=== PATIENT | female | born 1985 | race African-American/Black ===

== ENCOUNTER 2020-12-17 16:44 | Emergency (ER) | payer OTHER ==
[~2020-12-17] VITALS: Ht 149.9 cm; Wt 127.0 kg
[2020-12-17] MEDS ORDERED: FAMOTIDINE 20MG/2ML VIAL IV STA (17:59)
[2020-12-17] MEDS ORDERED: KETOROLAC 30MG/ML VIAL IV STA (17:59)
[2020-12-17] MEDS ORDERED: ONDANSETRON HCL 4MG/2ML INJ IV STA (17:59)
[2020-12-17] MEDS ORDERED: SODIUM CHLORIDE 0.9% 1,000 ML IV ONE (18:00)
[2020-12-17 18:08] LABS: CLARITY URINE CLEAR (CLEAR); COLOR URINE YELLOW (YELLOW); KETONES URINE NEGATIVE (NEGATIVE); LEUKOCYTE ESTERASE URINE NEGATIVE (NEGATIVE); NITRITE URINE NEGATIVE (NEGATIVE); OCCULT BLOOD URINE NEGATIVE (NEGATIVE); PROTEIN URINE NEGATIVE (NEGATIVE); SPECIFIC GRAVITY URINE 1.018 (1.005-1.030)
[2020-12-17 18:21] LABS: BASOPHILS % 0.6 % (0.0-2.0); CHLORIDE 107 mEq/L (98-107); EOSINOPHILS % 1.2 % (0.0-5.0); HEMATOCRIT. 36.1 % (36.0-48.0); HEMOGLOBIN. 11.1 g/dL (12.0-16.0); LYMPHOCYTES % 30.5 % (20.0-50.0); MEAN CORPUSCULAR HEMOGLOBIN 20.9 pg (28.0-32.0); MEAN CORPUSCULAR VOLUME 68.2 fL (81.0-99.0); MEAN PLATELET VOLUME 9.1 fl (7.4-10.4); MONOCYTES % 11.5 % (2.0-8.0); NEUTROPHILS % 56.2 % (40.0-76.0); PLATELET 279 x1000/uL (130-400); RED CELL DISTRIBUTION WIDTH 20.5 % (11.6-14.6)
[2020-12-17 18:23] LABS: HCG SCREEN NEGATIVE
[2020-12-17] MEDS ORDERED: DEXTROSE 50% WATER 50ML SYRINGE IV NR (18:45)
[2020-12-17 19:37] LABS: PLATELET ESTIMATE NORMAL
[2020-12-17] MEDS ORDERED: FAMO-135 MT (20:24)
[2020-12-17] MEDS ORDERED: MAGNESIUM/ALUMINUM HYDROXIDE/SIMETHICONE 30ML UDC PO STA (20:31)
[2020-12-17] MEDS ORDERED: VISCOUS LIDOCAINE 2% 15 ML UDC PO STA (20:31)
[2020-12-17 21:23] VITALS: BP 146/90
== END 2020-12-17 21:20 | disposition home or self-care (01) ==
LOC: ER 16:44
DX: K29.70 Gastritis, unspecified, without bleeding (principal); D50.9 Iron deficiency anemia, unspecified
CPT/HCPCS: 36415; 74177; 80053; 81003; 81025; 83605; 83690; 84703; 85025; 85610; 93005; 96361; 96374; 96375; 99285; J1885; J2405; J3490; J7030

== ENCOUNTER 2021-02-26 16:19 | Emergency (ER) | payer MEDICAID, OTHER ==
[~2021-02-26] VITALS: Ht 149.9 cm; Wt 132.0 kg
[~2021-02-26 16:19] MED LIST: FAMO-135 MT
[2021-02-26 16:27] VITALS: BP 179/97
== END 2021-02-26 18:55 | disposition left against medical advice (07) ==
LOC: ER 16:19
DX: Z53.21 Procedure and treatment not carried out due to patient leaving prior to being seen by health care provider (principal); R06.02 Shortness of breath; R05 Cough
CPT/HCPCS: 93005

== ENCOUNTER 2021-03-06 17:43 | Emergency (ER) | payer MEDICAID ==
[~2021-03-06] VITALS: Ht 149.9 cm; Wt 118.0 kg
[2021-03-06] MEDS ORDERED: DEXAMETHASONE 0.5MG/5ML ORAL SYR PO ONE (18:30)
[2021-03-06] MEDS ORDERED: ACETAMINOPHEN 325MG TABLET PO ONE (18:30)
[2021-03-06] MEDS ORDERED: KETOROLAC 60MG/2ML VIAL IM ONE (18:30)
[2021-03-06] MEDS ORDERED: DEXAMETHASONE 6MG TABLET PO ONE (20:00)
[2021-03-06] MEDS ORDERED: MORPHINE SULFATE 4 MG/ML CPJ (NOT FOR IM USE) IV ONE (22:30)
[2021-03-06] MEDS ORDERED: ALBUTEROL (0.083%) 2.5MG/3ML NEB HHN STA (22:49)
[2021-03-06] MEDS ORDERED: AZITHROMYCIN 500 MG TABLET PO STA (22:49)
[2021-03-06] MEDS ORDERED: IPRATROPIUM BROMIDE (0.02%) 0.5MG/2.5ML NEB HHN STA (22:49)
[2021-03-06 23:45] LABS: BASOPHILS % 0.5 % (0.0-2.0); EOSINOPHILS % 4.9 % (0.0-5.0); HEMATOCRIT. 32.2 % (36.0-48.0); LYMPHOCYTES % 21.1 % (20.0-50.0); MEAN CORPUSCULAR HEMOGLOBIN 21.2 pg (28.0-32.0); MEAN CORPUSCULAR VOLUME 68.1 fL (81.0-99.0); MEAN PLATELET VOLUME 9.2 fl (7.4-10.4); MONOCYTES % 9.2 % (2.0-8.0); NEUTROPHILS % 64.3 % (40.0-76.0); PLATELET 279 x1000/uL (130-400); RED BLOOD CELL COUNT 4.72 mill/uL (4.2-5.4); RED CELL DISTRIBUTION WIDTH 19.5 % (11.6-14.6)
[2021-03-06 23:53] LABS: CHLORIDE 109 mEq/L (98-107)
[2021-03-07] MEDS ORDERED: ALBU6.7H11 INH (03:54)
[2021-03-07] MEDS ORDERED: AZIT250T12 MT (03:54)
[2021-03-07 04:00] VITALS: BP 126/68
[2021-03-07] MEDS ORDERED: BENZ100C86 MT (04:22)
[2021-03-07] MEDS ORDERED: BENZONATATE 200MG CAPSULE PO ONE (04:30)
[2021-03-07 04:56] LABS: PLATELET ESTIMATE NORMAL
== END 2021-03-07 05:00 | disposition left against medical advice (07) ==
LOC: ER 17:59
DX: J40 Bronchitis, not specified as acute or chronic (principal); E66.01 Morbid (severe) obesity due to excess calories; Z68.43 Body mass index [BMI] 50.0-59.9, adult
CPT/HCPCS: 36415; 71045; 80053; 83880; 84484; 85025; 87070; 93005; 94640; 96372; 96374; 99285; J1885; J2270; J8540; Z7610; 87430

== ENCOUNTER 2021-11-05 11:26 | Emergency (ER) | payer OTHER ==
[~2021-11-05] VITALS: Ht 149.9 cm; Wt 136.0 kg
[~2021-11-05 11:26] MED LIST changes: +ALBU6.7H15 INH; +AZIT250T12 MT; +BENZ100C86 MT
[2021-11-05 11:58] LABS: BASOPHILS % 1.2 % (0.0-2.0); EOSINOPHILS % 2.7 % (0.0-5.0); HEMATOCRIT. 35.8 % (36.0-48.0); HEMOGLOBIN. 11.2 g/dL (12.0-16.0); MEAN CORPUSCULAR HEMOGLOBIN 21.3 pg (28.0-32.0); MEAN CORPUSCULAR VOLUME 68.4 fL (81.0-99.0); NEUTROPHILS % 60.1 % (40.0-76.0); PLATELET 295 x1000/uL (130-400); RED BLOOD CELL COUNT 5.24 mill/uL (4.2-5.4); RED CELL DISTRIBUTION WIDTH 21.3 % (11.6-14.6)
[2021-11-05 12:11] LABS: CHLORIDE 107 mEq/L (98-107)
[2021-11-05 14:28] LABS: PLATELET ESTIMATE NORMAL
[2021-11-05 16:20] LABS: CLARITY URINE CLOUDY (CLEAR); COLOR URINE YELLOW (YELLOW); KETONES URINE NEGATIVE (NEGATIVE); LEUKOCYTE ESTERASE URINE NEGATIVE (NEGATIVE); NITRITE URINE NEGATIVE (NEGATIVE); OCCULT BLOOD URINE NEGATIVE (NEGATIVE); PH URINE 5.5 (4.5-8.0); PROTEIN URINE NEGATIVE (NEGATIVE); SPECIFIC GRAVITY URINE 1.018 (1.005-1.030)
[2021-11-05] MEDS ORDERED: ACET-2708 MT (17:42)
[2021-11-05 17:56] VITALS: BP 188/87
== END 2021-11-05 17:59 | disposition home or self-care (01) ==
LOC: ER 11:26
DX: G44.209 Tension-type headache, unspecified, not intractable (principal); R07.89 Other chest pain; Z79.899 Other long term (current) drug therapy
CPT/HCPCS: 36415; 71045; 80053; 81003; 81025; 84484; 85025; 93005; 99285